=== PATIENT | female | born 1995 | race Asian ===

== ENCOUNTER 2018-08-27 14:05 | Emergency (ER) | payer OTHER ==
--- NOTE | 2018-08-27 15:42 | ED Physician Documentation ---
History of Present Illness - Stated complaint Stated Complaint: ALLERGIC REACTION - Chief complaint Chief Complaint: Resp - History obtained from History obtained from: Patient - History of Present Illness Timing: Today (She is been on Lamictal for about 2 weeks for depression. She developed burning rash on the forearms today and a sensation of throat swelling without vocal changes.) Review of Systems Constitutional: denies: Fever, Chills Cardiac: denies: Chest pain / pressure, Palpitations Respiratory: denies: Dyspnea, Cough GI: denies: Abdominal Pain PD PAST MEDICAL HISTORY - Present Medications Home Medications: Ambulatory Orders Medication Instructions Recorded Confirmed FLUoxetine [PROzac] 20 mg PO DAILY 08/27/18 08/27/18 lamoTRIgine [LaMICtal] 100 mg PO DAILY 08/27/18 08/27/18 predniSONE [Deltasone] 40 mg PO DAILY 3 Days tablet 08/27/18 - Allergies Allergies/Adverse Reactions: Allergies Allergy/AdvReac Type Severity Reaction Status Date / Time No Known Drug Allergies Allergy Verified 08/27/18 14:12 PD ED PE NORMAL - Vitals Vital signs reviewed: Yes - General General: Alert and oriented X 3, No acute distress - HEENT HEENT: Pharynx benign - Neck Neck: Supple, no meningeal sign, No bony TTP - Cardiac Cardiac: RRR, No murmur - Respiratory Respiratory: No respiratory distress, Clear bilaterally - Derm Derm: Other (She is a fine macular rash on the forearms) - Neuro Neuro: Alert and oriented X 3, Normal speech Results - Vitals Vitals: Vital Signs - 24 hr 08/27/18 14:09 Temperature 37.1 C Heart Rate 98 Respiratory 20 Rate Blood Pressure 134/65 H O2 Saturation 100 Oxygen O2 Source Room air Departure - Departure Disposition: Home, Self Care Clinical Impression: Medication reaction Qualifiers: Encounter type: initial encounter Qualified Code(s): T50.905A - Adverse effect of unspecified drugs, medicaments and biological substances, initial encounter Condition: Good Record reviewed to determine appropriate education?: Yes Prescriptions: predniSONE [Deltasone] 40 mg PO DAILY 3 Days tablet Comments: Stop the Lamictal. Talk with your psychiatrist about an alternative. Return for new or worsening symptoms.
[2018-08-27 15:44] VITALS: BP 109/72
== END 2018-08-27 16:12 | disposition home or self-care (01) ==
LOC: ED 14:05
DX: L27.1 Localized skin eruption due to drugs and medicaments taken internally (principal); T42.6X5A Adverse effect of other antiepileptic and sedative-hypnotic drugs, initial encounter
CPT/HCPCS: 99282; 99283